=== PATIENT | male | born 1950 | race Hispanic/Latino ===

== ENCOUNTER 2021-08-18 16:53 | Emergency (ER) | payer MEDICARE, SELFPAY ==
[2021-08-19] MEDS ORDERED: Lidocaine 1% (PF) 30 ML VIAL ONE (00:29)
[2021-08-19] MEDS ORDERED: Boostrix 0.5 ML (Tdap) VIAL ONE (00:30)
[2021-08-19] MEDS ORDERED: Cefepime 2 GM VIAL ONE (00:30)
[2021-08-19] MEDS ORDERED: CEFAZOLIN 1 GM VIAL ONE ×3 (00:30→00:35)
== END 2021-08-19 01:25 | disposition left against medical advice (07) ==
LOC: MADERS 16:53
DX: S62.610B Displaced fracture of proximal phalanx of right index finger, initial encounter for open fracture (principal); S56.121A Laceration of flexor muscle, fascia and tendon of right index finger at forearm level, initial encounter; Z23 Encounter for immunization; W31.2XXA Contact with powered woodworking and forming machines, initial encounter
CPT/HCPCS: 90471; 90715; 96372; J0690; J0692; J2001